=== PATIENT | male | born 1990 | race Two or more races ===

== ENCOUNTER 2024-12-30 21:54 | Emergency (ER) | payer MEDICAID ==
[~2024-12-30] VITALS: Ht 170.2 cm; Wt 78.0 kg
[2024-12-30] MEDS ORDERED: IBUPROFEN 400 MG TABLET ONE (23:30)
[2024-12-30] MEDS: IBUPROFEN 400 MG TABLET PO ONE (23:31)
[2024-12-31 01:43] VITALS: BP 130/84; O2SAT 98
== END 2024-12-31 01:44 | disposition home or self-care (01) ==
LOC: ER 21:57
DX: S52.125A Nondisplaced fracture of head of left radius, initial encounter for closed fracture (principal); W10.8XXA Fall (on) (from) other stairs and steps, initial encounter; Y93.89 Activity, other specified; Y92.89 Other specified places as the place of occurrence of the external cause; Y99.8 Other external cause status
CPT/HCPCS: 73080-TC